=== PATIENT | male | born 1960 | race Caucasian/White ===

== ENCOUNTER 2023-06-25 15:34 | Emergency (ER) | payer SELFPAY ==
[2023-06-25 15:39] VITALS: BP 103/72; PULSE 84; RESP 16; TEMP 37.1; O2SAT 97; BMI 19.9
--- NOTE | 2023-06-25 15:54 | ECG_ITS ---
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 Measurements Intervals Morrison Rate: 80 P: 73 ME: 139 QRS: 80 QRSD: 103 T: 74 QT: 348 QTc: 402 Interpretive Statements SINUS RHYTHM INDETERMINATE AXIS No previous ECG available for comparison Electronically Signed On 06-25-2023 19:08:24 CDT by Cameron Rucker M.D. [id number]
--- NOTE | 2023-06-25 15:54 | XRR_ITS ---
PROCEDURE INFORMATION: Exam: XR Chest Exam date and time: 06/25/2023 4:10 PM Age: 62 years old Clinical indication: Other: Weakness TECHNIQUE: Imaging protocol: Radiologic exam of the chest. Views: 1 view. COMPARISON: No relevant prior studies available. FINDINGS: Lungs: Unremarkable. No consolidation. Pleural spaces: Unremarkable. No pleural effusion. No pneumothorax. Heart/Mediastinum: Unremarkable. No cardiomegaly. Bones/joints: Unremarkable. XR/XR chest 1V portable [id number] IMPRESSION: No acute findings.
--- NOTE | 2023-06-25 16:17 | ED_ITS ---
HPI - Weakness General: Chief complaint: Weakness Stated complaint: weakness Time Seen by Provider: 06/25/23 15:53 Source: patient Mode of arrival: ambulatory Limitations: no limitations History of Present Illness: 62-year-old male states that over the last 5 to 6 days has been having some epigastric pain especially the eating. He has had a slightly decreased appetite and has been feeling generally weak. Denies any fever denies any severe pain denies any diarrhea or vomiting denies any chest pain. Associated symptoms: Denies chest pain, chills, dysuria, fever(s), headache(s), nausea or vomiting Review of Systems Const: Reports: change in appetite; Denies: fever(s), chills or body aches Eyes: Denies: blurry vision or eye discomfort ENMT: Denies: throat pain or dental pain Card: Denies: chest pain Resp: Denies: dyspnea GI: Reports: abdominal pain; Denies: nausea, vomiting or diarrhea : Denies: dysuria Musc: Denies: neck pain or back pain Skin/Breast: Denies: rash Neuro: Denies: headache(s) Physical Exam Const: COMMON NORMALS: no acute distress, patient oriented x3 and healthy appearing HENMT: COMMON NORMALS: normocephalic and atraumatic HEAD & SCALP: normocephalic and atraumatic Eye: COMMON NORMALS: Equal, round and reactive pupils present and EOMs intact bilaterally PUPIL: Yes Equal, round and reactive pupils present Neck/C-Spine: COMMON NORMALS: full ROM and supple Chest: COMMONS NORMALS: normal inspection of the chest and normal palpation of entire chest wall Resp: COMMON NORMALS: normal respiratory effort, No retractions, No use of accessory muscles and clear to auscultation bilaterally AUSCULTATION: clear to auscultation bilaterally Cardio: COMMON NORMALS: regular rate, regular rhythm and No murmurs present (Cardio) RATE: regular rate RHYTHM: regular rhythm GI: COMMON NORMALS: Normal to inspection, nondistended, normoactive bowel sounds present, Soft to palpation, non-tender and no masses PALPATION: Yes Soft to palpation Extremity: COMMON NORMALS: normal to inspection and full ROM Neuro: COMMON NORMALS: patient oriented x3, moves all extremities and no focal motor deficits Psych: COMMON NORMALS: mental status grossly normal, Normal thought process present and cooperative THOUGHT PROCESS: Normal thought process present Skin: COMMON NORMALS: no rashes or lesions noted and no wounds GENERAL SKIN EXAM: no rashes or lesions noted Course Vital Signs: Vital signs: Vital Signs Temperature 98.8 F 06/25/23 15:39 Pulse Rate 84 06/25/23 15:39 Respiratory Rate 16 06/25/23 15:39 Blood Pressure 103/72 06/25/23 15:39 Pulse Oximetry 97 06/25/23 15:39 Oxygen Delivery Me thod Room Air 06/25/23 15:39 MDM - Weakness Medical Decision Making Patient presents here with some abdominal pain is likely gastritis his blood work here is normal exam here is benign we will place him on Protonix he is to follow-up with PCP and return if worsening. Medical Records I reviewed the patient's medical records. Lab Data I reviewed the patient's lab results. 06/25/23 16:29 06/25/23 16:29 Radiology Impressions Chest X-Ray 06/25/23 15:54 IMPRESSION: No acute findings. Laboratory Results WBC 7.67 10^3/uL (3.29-11.43) 06/25/23 16:29 RBC 5.30 10^6/uL (3.85-5.65) 06/25/23 16:29 Hgb 15.60 g/dL (11.27-16.99) 06/25/23 16:29 Hct 45.0 % (37-53) 06/25/23 16:29 MCV 84.9 fl (82-101) 06/25/23 16: MCH 29.4 pg (27-33) 06/25/23 16: MCHC 34.7 g/dL (30-55) 06/25/23 16:29 RDW 11.8 % (12.1-15.1) L 06/25/23 16:29 Plt Count 264 10^3/cmm (157-399) 06/25/23 16:29 MPV 9.9 fL (7.4-10.4) 06/25/23 16:29 Neut % (Auto) 63.8 % 06/25/23 16: Lymph % (Auto) 21.8 % 06/25/23 16: Pershing % (Auto) 11.5 % 06/25/23 16: Eos % (Auto) 2.0 % 06/25/23 16: Baso % (Auto) 0.8 % 06/25/23 16: Neut # (Auto) 4.90 10^3/uL (1.8-7.7) 06/25/23 16: Lymph # (Auto) 1.7 10^3/uL (0.8-4.8) 06/25/23 16: Pershing # (Auto) 0.9 10^3/uL (0.2-0.9) 06/25/23 16: Eos # (Auto) 0.2 10^3/uL (0.0-0.8) 06/25/23 16: Baso # (Auto) 0.1 10^3/uL (0.0-0.1) 06/25/23 16: Nucleated RBC % (auto) 0 % 06/25/23 16: Nucleated RBCs # 0.0 /100WBC 06/25/23 16: Sodium 139 mmol/L (136-145) 06/25/23 16: Potassium 4.1 mmol/L (3.5-5.1) 06/25/23 16: Chloride 99 mmol/L (98-107) 06/25/23 16: Carbon Dioxide 30 mmol/L (22-29) H 06/25/23 16: Anion Gap 14.1 (5-19) 06/25/23 16: BUN 21 mg/dL (8-23) 06/25/23 16: Creatinine 1.3 mg/dL (0.7-1.2) H 06/25/23 16: GFR Calculation 55.9 mL/min (90-130) L 06/25/23 16: Glucose 103 mg/dL (65-115) 06/25/23 16: Calculated Osmolality 291 mOsm/kg (285-295) 06/25/23 16: Calcium 10.0 mg/dL (8.5-10.5) 06/25/23 16: Total Bilirubin 0.5 mg/dL (0.15-1.2) 06/25/23 16: AST 22 U/L (0-40) 06/25/23 16: ALT 13 U/L (0-41) 06/25/23 16:29 Alkaline Phosphatase 77 U/L (40-130) 06/25/23 16:29 Total Protein 6.7 g/dL (6.6-8.7) 06/25/23 16:29 Albumin 4.3 g/dL (3.5-5.2) 06/25/23 16:29 Globulin 2.4 g/dL (1.3-4.6) 06/25/23 16:29 Lipase 76 U/L (13-60) H 06/25/23 16:29 No radiology studies performed this visit EKG Data EKG 1: I personally reviewed and interpreted this EKG as follows: EKG interpretation date: 06/25/23 EKG interpretation time: 16:04 Interpretation: nsr hr [address] elevation qrs 103 qc 383 Discharge Plan Discharge Patient Disposition: Home Clinical Impression: Abdominal pain Condition: Stable Prescriptions: New Protonix 40 mg tablet,delayed release (DR/EC) 40 mg PO DAILY Qty: 60 0RF Discharge Orders: Discharge ED (Routine); Ordered 06/25/23 Ordered By: Keny Ambrocio Referrals: Brenton Wade DO [Physician] - 1-3 days Discharge Diet: Advance as tolerated Discharge Activity: Resume usual activity Patient Instructions: Abdominal Pain (ED) Coding Level of Care Code ED Crimper Assembler for Marcio Frey
[2023-06-25 16:32] LABS: Basophils # 0.1 10^3/uL (0.0-0.1); Basophils % 0.8 %; Eosinophils # 0.2 10^3/uL (0.0-0.8); Lymphocytes # 1.7 10^3/uL (0.8-4.8); Lymphocytes % 21.8 %; Mean Corpuscular HGB Conc 34.7 g/dL (30-55); Mean Corpuscular Hemoglobin 29.4 pg (27-33); Mean Corpuscular Volume 84.9 fl (82-101); Mean Platelet Volume 9.9 fL (7.4-10.4); Monocytes # 0.9 10^3/uL (0.2-0.9); Monocytes % 11.5 %; Neutrophils % 63.8 %; Nucleated Red Blood Cells % 0 %; Platelet Count 264 10^3/cmm (157-399); Red Cell Distribution Width 11.8 % (12.1-15.1); White Blood Count 7.67 10^3/uL (3.29-11.43)
[2023-06-25 16:49] LABS: Alanine Aminotransferase 13 U/L (0-41); Albumin Level 4.3 g/dL (3.5-5.2); Alkaline Phosphatase 77 U/L (40-130); Anion Gap 14.1 (5-19); Aspartate Amino Transferase 22 U/L (0-40); Blood Urea Nitrogen 21 mg/dL (8-23); Carbon Dioxide 30 mmol/L (22-29); Chloride 99 mmol/L (98-107); Globulin 2.4 g/dL (1.3-4.6); Glomerular Filtration Rate 55.9 mL/min (90-130); Glucose 103 mg/dL (65-115); Lipase 76 U/L (13-60); Osmolality Calculated 291 mOsm/kg (285-295); Potassium 4.1 mmol/L (3.5-5.1); Sodium 139 mmol/L (136-145); Total Bilirubin 0.5 mg/dL (0.15-1.2); Total Protein 6.7 g/dL (6.6-8.7)
== END 2023-06-25 17:45 | disposition home or self-care (01) ==
PROVIDERS: Physician Assistant; Emergency Provider Emergency Medicine
DX: R10.13 Epigastric pain (principal)
CPT/HCPCS: 71045; 80053; 83690; 85025; 93005; 99285

== ENCOUNTER 2023-11-21 17:41 | Emergency (ER) | payer SELFPAY ==
[2023-11-21 17:51] VITALS: BP 121/75; PULSE 79; RESP 18; TEMP 36.6; O2SAT 98
--- NOTE | 2023-11-21 18:09 | CTR_ITS ---
PROCEDURE INFORMATION: Exam: CT Abdomen And Pelvis With Contrast Exam date and time: 11/21/2023 7:43 PM Age: 63 years old Clinical indication: Abdominal pain; Prior surgery; Surgery date: 6+ months; Surgery type: Hernia repair; Patient HX: Epigastric pain with tarry stool. Unintentional 30 lb weight loss over last three weeks. TECHNIQUE: Imaging protocol: Computed tomography of the abdomen and pelvis with contrast. Radiation optimization: All CT scans at this facility use at least one of these dose optimization techniques: automated exposure control; mA and/or kV adjustment per patient size (includes targeted exams where dose is matched to clinical indication); or iterative reconstruction. Contrast material: OMNI 350; Contrast volume: 75 ml; Contrast route: INTRAVENOUS (IV); COMPARISON: CR XR chest 1V portable [id number] 06/25/2023 4:10 PM RADIATION DOSE METRICS: Total DLP (mGy-cm): 404.83 FINDINGS: Liver: Normal. No mass. Gallbladder and bile ducts: The gallbladder is contracted. Pancreas: Normal. No ductal dilation. Spleen: Normal. No splenomegaly. Adrenal glands: There is thickening of the left adrenal gland. Kidneys and ureters: Normal. No hydronephrosis. Stomach and bowel: Unremarkable. No obstruction. No mucosal thickening. Appendix: No evidence of appendicitis. Intraperitoneal space: Unremarkable. No free air. No significant fluid collection. Vasculature: Unremarkable. No abdominal aortic aneurysm. Lymph nodes: Unremarkable. No enlarged lymph nodes. Urinary bladder: Unremarkable as visualized. Reproductive: The prostate is enlarged and measures 5.8 cm in diameter. Bones/joints: Degenerative change is identified in the spine. There is no evidence for acute fracture or malalignment. Soft tissues: Unremarkable. CT/CT abdomen pelvis w con* [id number] IMPRESSION: There are no acute concerning abnormalities.
[2023-11-21 18:43] LABS: Basophils # 0.1 10^3/uL (0.0-0.1); Basophils % 0.9 %; Eosinophils # 0.3 10^3/uL (0.0-0.8); Eosinophils % 4.1 %; Hematocrit 40.5 % (37-53); Lymphocytes # 1.5 10^3/uL (0.8-4.8); Lymphocytes % 19.1 %; Mean Corpuscular HGB Conc 34.1 g/dL (30-55); Mean Corpuscular Hemoglobin 29.8 pg (27-33); Mean Corpuscular Volume 87.5 fl (82-101); Mean Platelet Volume 9.8 fL (7.4-10.4); Monocytes # 0.8 10^3/uL (0.2-0.9); Monocytes % 10.4 %; Neutrophils # 5.16 10^3/uL (1.8-7.7); Neutrophils % 65.2 %; Nucleated Red Blood Cells % 0 %; Platelet Count 213 10^3/cmm (157-399); Red Blood Count 4.63 10^6/uL (3.85-5.65); Red Cell Distribution Width 12.1 % (12.1-15.1)
[2023-11-21 18:51] LABS: INR 0.95 (0.8-1.2)
[2023-11-21 19:00] LABS: Alanine Aminotransferase 18 U/L (0-41); Albumin Level 3.8 g/dL (3.5-5.2); Alkaline Phosphatase 76 U/L (40-130); Anion Gap 12.8 (5-19); Aspartate Amino Transferase 19 U/L (0-40); Blood Urea Nitrogen 28 mg/dL (8-23); Calcium 8.9 mg/dL (8.5-10.5); Carbon Dioxide 29 mmol/L (22-29); Chloride 104 mmol/L (98-107); Creatinine Clr Calc Pharmacy 62.7062; Globulin 2.4 g/dL (1.3-4.6); Glomerular Filtration Rate 61.1 mL/min (90-130); Glucose 73 mg/dL (65-115); Lipase 152 U/L (13-60); Osmolality Calculated 298 mOsm/kg (285-295); Potassium 3.8 mmol/L (3.5-5.1); Sodium 142 mmol/L (136-145); Total Bilirubin 0.2 mg/dL (0.15-1.2); Total Protein 6.2 g/dL (6.6-8.7)
[2023-11-21] MEDS: iohexol 350 mg/mL 500 mL Btl (per mL) IV (19:42)
--- NOTE | 2023-11-21 21:36 | ED_ITS ---
HPI - Abdominal Pain 2 General: Chief Complaint: Abdominal Pain Stated Complaint: blood in stool Time Seen by Provider: 11/21/23 18:32 History of Present Illness: 63-year-old male presents emerged part w ith complaints of intermittent abdominal pain since last week. He states he does have a kosher diet due to congregational beliefs but did eat some chicken yesterday. He states he has had some intermittent cramping and gas today. He states he has also had several bowel movements with small amount of blood and thinks that he may have hemorrhoids. Patient states he also feels a mass in his left lower quadrant and in his rectum. He denies fatigue or weakness or malaise. He denies hematic emesis. Associated Symptoms: Reports hematochezia; Denies nausea and vomiting Review of Systems 2 General: Reports: 10 or more systems reviewed and unremarkable except in HPI and below GI: Reports: abdominal pain and hematochezia; Denies: nausea or vomiting Physical Exam 2 Narrative: EXAM NARRATIVE: Constitutional: the patient appears well nourished and of normal development. Vital signs as documented. No acute distress at present. Alert and oriented-to person, place, time and situation. Head, eyes, ears, nose, mouth, throat: Normocephalic, atraumatic. Pupils-equal, round, reactive to light. No scleral icterus. Normal-appearing external ears. Normal appearing nasal turbinates, no drainage. No obvious oral lesions, posterior oropharynx without erythema or exudates. Neck: Supple, trachea is midline, no lymphadenopathy, no jugular venous distension, thyromegaly, or carotid bruits. Carotid upstrokes are brisk bilaterally. Lungs: clear to auscultation to all lung diop. Symmetrical rise and fall of chest, no obvious signs of increased work of breathing at present. Cardiac: Regular rate and rhythm, positive S1, S2. No murmurs, rubs or gallops that I can appreciate Abdomen: Soft, non-tender to palpation, normal active bowel sounds to all quadrants. No palpable masses, no organomegaly and abdominal bruits. Extremities: 2+ pulses in the upper extremities that are equal bilaterally, 2+ pulses in the lower extremities that are equal bilaterally. Non-edematous. Moves all extremities well, sensation to all extremities are noted. Skin: Warm, dry, intact. Course 2 Vital Signs: Vital signs: Vital Signs Temperature 97.8 F 11/21/23 17:51 Pulse Rate 74 11/21/23 22:31 Respiratory Rate 16 11/21/23 22:31 Blood Pressure 120/79 11/21/23 22:31 Pulse Oximetry 97 11/21/23 22:31 Oxygen Delivery Me thod Room Air 11/21/23 17:51 MDM - Abdominal Pain Medical Decision Making Physical exam completed and documented patient's CBC and CMP were essentially normal his lipase was slightly elevated at 152 CT abdomen of the pelvis demonstrated no acute intra-abdominal abnormality per radiology report. I will have the patient follow-up with his primary care provider and discuss need for referral for colonoscopy. I have educated the patient regarding supportive treatment and care of his existing hemorrhoids. Medical Records I reviewed the patient's medical records. Lab Data I reviewed the patient's lab results. 11/21/23 18:32 11/21/23 18:32 Labs/Radiology: Radiology Impressions Abdomen/Pelvis CT 11/21/23 18:09 IMPRESSION: There are no acute concerning abnormalities. Laboratory Results WBC 7.90 10^3/uL (3.29-11.43) 11/21/23 18:32 RBC 4.63 10^6/uL (3.85-5.65) 11/21/23 18:32 Hgb 13.80 g/dL (11.27-16.99) 11/21/23 18:32 Hct 40.5 % (37-53) 11/21/23 18:32 MCV 87.5 fl (82-101) 11/21/23 18:32 MCH 29.8 pg (27-33) 11/21/23 18:32 MCHC 34.1 g/dL (30-55) 11/21/23 18:32 RDW 12.1 % (12.1-15.1) 11/21/23 18:32 Plt Count 213 10^3/cmm (157-399) 11/21/23 18:32 MPV 9.8 fL (7.4-10.4) 11/21/23 18:32 Neut % (Auto) 65.2 % 11/21/23 18:32 Lymph % (Auto) 19.1 % 11/21/23 18:32 Dickinson % (Auto) 10.4 % 11/21/23 18:32 Eos % (Auto) 4.1 % 11/21/23 18:32 Baso % (Auto) 0.9 % 11/21/23 18:32 Neut # (Auto) 5.16 10^3/uL (1.8-7.7) 11/21/23 18:32 Lymph # (Auto) 1.5 10^3/uL (0.8-4.8) 11/21/23 18:32 Dickinson # (Auto) 0.8 10^3/uL (0.2-0.9) 11/21/23 18:32 Eos # (Auto) 0.3 10^3/uL (0.0-0.8) 11/21/23 18: Baso # (Auto) 0.1 10^3/uL (0.0-0.1) 11/21/23 18:32 Nucleated RBC % (auto) 0 % 11/21/23 18: Nucleated RBCs # 0.0 /100WBC 11/21/23 18:32 PT 13.00 SECONDS (12.1-14.9) 11/21/23 18:32 INR 0.95 (0.8-1.2) 11/21/23 18:32 Sodium 142 mmol/L (136-145) 11/21/23 18:32 Potassium 3.8 mmol/L (3.5-5.1) 11/21/23 18:32 Chloride 104 mmol/L (98-107) 11/21/23 18:32 Carbon Dioxide 29 mmol/L (22-29) 11/21/23 18:32 Anion Gap 12.8 (5-19) 11/21/23 18:32 BUN 28 mg/dL (8-23) H 11/21/23 18:32 Creatinine 1.2 mg/dL (0.7-1.2) 11/21/23 18:32 GFR Calculation 61.1 mL/min (90-130) L 11/21/23 18:32 Glucose 73 mg/dL (65-115) 11/21/23 18:32 Calculated Osmolality 298 mOsm/kg (285-295) H 11/21/23 18:32 Calcium 8.9 mg/dL (8.5-10.5) 11/21/23 18:32 Total Bilirubin 0.2 mg/dL (0.15-1.2) 11/21/23 18:32 AST 19 U/L (0-40) 11/21/23 18:32 ALT 18 U/L (0-41) 11/21/23 18:32 Alkaline Phosphatase 76 U/L (40-130) 11/21/23 18:32 Total Protein 6.2 g/dL (6.6-8.7) L 11/21/23 18:32 Albumin 3.8 g/dL (3.5-5.2) 11/21/23 18:32 Globulin 2.4 g/dL (1.3-4.6) 11/21/23 18:32 Lipase 152 U/L (13-60) H 11/21/23 18:32 Urine Color Yellow (Yellow) 11/21/23 21:07 Urine Appearance Clear (CLEAR) 11/21/23 21:07 Urine pH 5 (5-7) 11/21/23 21:07 Ur Specific Pinnacle 1.010 (1.005-1.030) 11/21/23 21:07 Urine Protein Neg (Negative) 11/21/23 21:07 Urine Glucose (UA) Norm (Normal) 11/21/23 21:07 Urine Ketones Negative (Negative) 11/21/23 21:07 Urine Blood 2+ (Negative) H 11/21/23 21:07 Urine Nitrate Negative (Negative) 11/21/23 21:07 Urine Bilirubin Neg (Negative) 11/21/23 21:07 Urine Urobilinogen Neg mg/dL (Negative) 11/21/23 21:07 Ur Leukocyte Esterase Negative (Negative) 11/21/23 21:07 Urine RBC 0-4 /hpf (0-2) H 11/21/23 21:07 Urine WBC 5-10 /hpf (0-5) H 11/21/23 21:07 Ur Squamous Epith Cells 0-4 /hpf (0-5) H 11/21/23 21:07 Amorphous Sediment Not Reportable 11/21/23 21:07 Urine Bacteria Trace /hpf (NONE) 11/21/23 21:07 Urine Mucus Trace /hpf 11/21/23 21:07 All radiology interpretation(s) finalized by discharge Discharge Plan Discharge Patient Disposition: Home Clinical Impression: Excessive flatus Hemorrhoids Qualifiers: Hemorrhoid type: unspecified Qualified Code(s): K64.9 - Unspecified hemorrhoids Abdominal pain Qualifiers: Abdominal location: generalized Qualified Code(s): R10.84 - Generalized abdominal pain Condition: Stable Prescriptions: No Action Protonix 40 mg tablet,delayed release (DR/EC) 40 mg PO DAILY Qty: 60 0RF Discharge Orders: Discharge ED (Routine); Ordered 11/21/23 Ordered By: Juan Carlos West Discharge Diet: Usual diet Discharge Activity: Resume usual activity Patient Instructions: Abdominal Pain (ED), Opioid Safety, Pain Management Activity Restrictions/Additional Instructions: Activity Restrictions/Additional Instructions: Thank you for choosing [facility] for your healthcare needs today. Please realize that you were seen in the Emergency Department and that we are providing you with an emergency medical screening exam and this may not be a complete and all inclusive of all the testing and or medical work-up that you may need to determine your ailment or severity of your illness. It is very important that you follow-up as instructed with your Primary care provider or Specialist for additional evaluation and to discuss your medical treatment plan. You may return to the Emergency Department should you have concerns or if your condition changes or worsens in any way. Coding Level of Care Code ED Airfield Manager for Marcio Frey
[2023-11-21 21:45] LABS: Glucose Urine UA Norm (Normal); Ketones Urine Negative (Negative); Protein Urine Neg (Negative); Urine Appearance Clear (CLEAR); Urine Color Yellow (Yellow); pH Urine 5 (5-7)
[2023-11-21 21:46] LABS: Add Urine Microscopic? YES; Bacteria Urine TRACE /hpf; Bilirubin Urine Neg (Negative); Blood Urine 2+ (Negative); Leukocyte Esterase Urine Negative (Negative); Mucus Urine TRACE /hpf; Nitrate Urine Negative (Negative); RBC Urine 0-4 /hpf (0-2); Squamous Epithelial Cell Urine 0-4 /hpf (0-5); Urobilinogen Urine Neg (Negative)
[2023-11-21 22:31] VITALS: BP 120/79; PULSE 74; RESP 16; O2SAT 97
== END 2023-11-21 22:35 | disposition home or self-care (01) ==
PROVIDERS: Emergency Provider Internal Medicine
DX: K64.9 Unspecified hemorrhoids (principal); R10.84 Generalized abdominal pain; R14.3 Flatulence
CPT/HCPCS: 36415; 74177; 80053; 81001; 83690; 85025; 85610; 99285; Q9967